=== PATIENT | male | born 1990 | race Caucasian/White ===

== ENCOUNTER 2017-09-02 13:12 | Emergency (ER) | payer MEDICAID ==
[~2017-09-02] VITALS: Ht 180.3 cm; Wt 106.6 kg
[2017-09-02 16:37] VITALS: BP 148/94
== END 2017-09-02 18:04 | disposition home or self-care (01) ==
LOC: ER 13:12
DX: N43.3 Hydrocele, unspecified (principal)
CPT/HCPCS: 76870; 81002